=== PATIENT | male | born 1945 | race Asian ===

== ENCOUNTER 2017-12-03 09:00 | Emergency (ER) | payer OTHER, MEDICARE ==
[~2017-12-03] VITALS: Ht 165.1 cm; Wt 97.6 kg
[~2017-12-03 09:00] MED LIST: ACIDOPHILUS W/P1 CAP PO; ACIDOPHILUS-PE1 EAC2 PO; ANTIVERT 12.512.5 MG PO; ANTIVERT 25 MG25 M1 PO; ANTIVERT 25 MG25 MG PO; ANTIVERT 25MG #1 PAC PO; ATORVASTATIN CA40 MG PO; Aspirin PO; BENTYL10 M1 PO; BENTYL20 MG PO; CIPRO 500MG TA500 MG PO; CIPRO500 M1 PO; CLONAZEPAM0.5 M2 PO; CLOPIDOGREL75 M1 PO; DRAMAMINE LESS25 MG PO; ECOTRIN325 M1 PO; FINASTERIDE5 M1 PO; FLOMAX(MONOGRA0.4 MG PO; FLOMAX0.4 M1 PO; GOLYTELY1 PDR PO; GOOD SENSE ASP325 MG PO; HEPARIN 2525000 UNIT IV; IBUPROFEN800 M1 PO; LEVSIN0.125 MG PO; LIPITOR40 M1 PO; LOPRESSOR 25MG25 MG PO; LOSARTAN POTASS1 TA2 PO; MECLIZINE HCL25 M1 PO; MECLIZINE25 M1 PO; METOPROLOL TART25 M1 PO; OXACILLIN2 GM/50 M1 IV; PAXIL10 M1 PO; PERCOCET 325 MG1 TA2 PO; PERCOCET 5-3251 EACH PO; PLAVIX 75MG TAB75 MG PO; PRINIVIL 5MG5 MG PO; PRINIVIL5 M1 PO; PROTONIX 20MG T20 MG PO; REGLAN10 MG PO; RISPERDAL0.25 M1 PO; RISPERDAL0.25 MG PO; RISPERIDONE0.5 MG PO; TRAMADOL HCL50 M1 PO; VOLTAREN100 GM TOP
[2017-12-03 09:07] VITALS: BP 151/72
--- NOTE | 2017-12-03 09:39 | ED GI/GU/ABDOMINAL COMPLAINT ---
History of Present Illness General Chief Complaint: Abdominal Pain/Flank Pain Stated Complaint: ABD PAIN Source: patient, old records Exam Limitations: poor historian Vital Signs & Intake/Output Vital Signs & Intake/Output Vital Signs Date Time Temp Pulse Resp B/P B/P Pulse O2 O2 Flow FiO2 Mean Ox Delivery Rate 12/03 0922 99 Room Air 12/03 906 98.2 88 20 151/72 97 Room Air Allergies Coded Allergies: NO KNOWN ALLERGIES (02/10/16) Reconcile Medications Atorvastatin Calcium (Lipitor) 40 MG TABLET 1 TAB PO 1700 CHOLESTEROL ( Reported) Clonazepam 0.5 MG TABLET 0.5 TAB PO BID UNKNOWN (Reported) Finasteride 5 MG TABLET 5 MG PO DAILY prostate Ibuprofen 800 MG TABLET 1 TAB PO TID PAIN Lisinopril (Prinivil) 5 MG TABLET 1 TAB PO DAILY BP (Reported) Metoprolol Tartrate 25 MG TABLET 1 TAB PO BID HEART (Reported) Oxacillin Sodium/Dextrose,Iso (Oxacillin 2 Gm/ 50 Ml Inj) 2 GM/50 ML FROZ.PIGGY 2,000 GM IV Q4 BLOOD INFECTION Oxycodone HCl/Acetaminophen (Percocet 5-325 MG Tablet) 1 EACH TABLET 1 TAB PO Q4-6H PRN PAIN (Reported) Paroxetine HCl (Paxil) 10 MG TABLET 1 TAB PO DAILY MENTAL HEALTH (Reported) Risperidone (Risperdal) 0.25 MG TABLET 1 TAB PO QAM UNKNOWN (Reported) Risperidone (Risperdal) 0.25 MG TABLET 2 TAB PO QPM MENTAL HEALTH (Reported) Tamsulosin HCl (Flomax) 0.4 MG CAP.ER.24H 2 CAP PO QPM URINARY RETENTION ( Reported) Tramadol HCl 50 MG TABLET 1 TAB PO TID PAIN Triage Note: 72 YEAR OLD MALE COMPLAINS OF INTERMITTANT DIFFUSE ABD PAIN FOR YEARS, DENIES BLOOD IN URINE, DENIES N/V/D. LBM THIS AM 0600. Triage Nurses Notes Reviewed? yes Onset: unknown Duration: gone now, intermittent, years Timing: recent history Quality/Severity: gassy Location: generalized abdomen, occasionally right sided Radiation: no radiation HPI: Patient presents for evaluation of an intermittent gassy abdominal pain that has been present for years. He states he is not having pain currently. He is unable to state why he has decided to come to the emergency department today for evaluation. Unfortunately he is somewhat of a poor historian, repeatedly stating that he wants to go home and did not be admitted. In addition to the generalized abdominal pain and he occasionally gets right-sided abdominal pain as well. He denies any associated vomiting diarrhea dysuria. In addition he states he noticed a droop of the right lip that began 2-3 days ago with no associated aphasia or weakness of the extremities. Past History Travel History Traveled to [place] past 21 day No Medical History Any Pertinent Medical History? see below for history Neurological: NONE EENT: NONE Cardiovascular: hypertension, NSTEMI, CAD S/P CARDIAC STENTS ATHEROSCLEROTIC HEART DISEASE Respiratory: NONE Gastrointestinal: GERD, hiatal hernia, colonic polyps status post polypectomy. internal and external hemorrhoids. SBO INTRAPERITONEAL BLEED Hepatic: NONE Renal: benign prost hyperplasia, hematuria Musculoskeletal: NONE Psychiatric: MOOD/AFFECTIVE D/O Endocrine: NONE Blood Disorders: BACTEREMIA MSSA STAPH AUREUS Cancer(s): NONE MIG TIG WELDER/Reproductive: NONE History of MRSA: No History of VRE: No History of CDIFF: No Tetanus Vaccine: 03/22/12 Surgical History Surgical History: cystoscopy, hernia repair-incisional (bilateral), hernia repair-inguinal Psychosocial History Who do you live with Spouse Services at Home None What is your primary language [place] Tobacco Use: Never used ETOH Use: denies use Illicit Drug Use: denies illicit drug use Family History Family History, If Any: Relation not specified for: *No pertinent family history Hx Contributory? No Review of Systems Review of Systems Constitutional: Reports: no symptoms. EENTM: Reports: no symptoms. Respiratory: Reports: no symptoms. Cardiovascular: Reports: no symptoms. GI: Reports: see HPI. Genitourinary: Reports: no symptoms. Musculoskeletal: Reports: no symptoms. Skin: Reports: no symptoms. Neurological/Psychological: Reports: see HPI. Hematologic/Endocrine: Reports: no symptoms. Immunologic/Allergic: Reports: no symptoms. All Other Systems: Reviewed and Negative Physical Exam Physical Exam Gastrointestinal: see below Comments: Gen.: Well-nourished, well-developed, no acute respiratory distress. Head: Normocephalic, atraumatic. Eyes: Normal inspection bilaterally Ears: Normal inspection bilaterally Nose: Normal inspection Throat/mouth : Moist mucosa Neck: Supple, full range of motion, no goiter Heart: Regular rate and rhythm, no murmurs rubs or gallops Lungs: Clear to auscultation bilaterally with normal air entry Chest: Nontender Back: Normal range of motion Abdomen: Soft, nontender, nondistended, normal bowel sounds Extremities: Normal range of motion grossly, equal radial pulses, no cyanosis clubbing or edema Neurologic: Cranial nerves 2 through 12 intact, speech is dysarthric (patient is edentulous) with no apparent aphasia Skin: warm and dry Psychiatric: Calm, cooperative, no apparent delusions or hallucinations Core Measures ACS in differential dx? No Sepsis Present: No Sepsis Focused Exam Completed? No Progress Differential Diagnosis: biliary colic, bowel obstruction, diverticulitis, gastritis, ischemic bowel, PUD/GERD Plan of Care: pt left ED prior to workup. Initial ED EKG: none Comments: i was notified by RN that pt left ED prior to workup. this occurred after pt left and i was unable to speak with pt regarding the reason for his departure. Departure Departure Disposition: LEFT AGAINST MEDICAL ADVICE Condition: Stable Clinical Impression Primary Impression: Abdominal pain Qualifiers: Abdominal location: generalized Qualified Code: R10.84 - Generalized abdominal pain Referrals: Juliet Meyer MD (PCP/Family) Departure Forms: Customer Survey General Discharge Information
[2017-12-03 10:17] LABS: ABSOLUTE BASOPHIL COUNT 0 /CUMM (0.0-0.2); ABSOLUTE EOSINOPHIL COUNT 0.1 /CUMM (0.0-0.7); ABSOLUTE GRANULOCYTE CT 3.5 /CUMM (1.4-6.5); ABSOLUTE LYMPH COUNT 1.7 /CUMM (1.2-3.4); ABSOLUTE MONOCYTE COUNT 0.5 /CUMM (0.10-0.60); BASOPHIL % 0.3 % (0.0-2.0); GRANULOCYTE % 59.4 % (42.2-75.2); MEAN CORPUSCULAR HGB 27.6 PG (27.0-31.0); MEAN CORPUSCULAR HGB CONC 34.1 G/DL (33.0-37.0); MEAN CORPUSCULAR VOLUME 80.8 FL (80.0-94.0); PLATELET COUNT 158 /CUMM (130-400); RBC DISTRIBUTION WIDTH 14.5 % (11.5-14.5); RED BLOOD CELL CT 4.46 /CUMM (4.70-6.10); WHITE BLOOD CELL COUNT 5.9 /CUMM (4.8-10.8)
--- NOTE | 2017-12-03 11:05 | CT SCAN REPORT ---
EXAMINATION: CT HEAD WITHOUT CONTRAST CLINICAL INFORMATION: Right lip droop. COMPARISON: Head CT 02/21/2016. TECHNIQUE: Contiguous axial imaging was performed from the skull base to vertex without intravenous administration of contrast. DLP: 619 mGy-cm. FINDINGS: There is no intracranial hemorrhage, large infarction, or mass lesion. There is no extra-axial collection. There is redemonstration of focal hypoattenuation in the right deep frontal white matter compatible with the sequela of prior subcortical infarction. There is mild scattered hypoattenuation in the bilateral cerebral white matter, which is nonspecific but likely reflects small vessel disease. There is mild diffuse brain parenchymal volume loss with prominence of the ventricles and sulci. There is no evidence of hydrocephalus. The paranasal sinuses are clear. The mastoids and middle ear cavities are clear. There is mild diffuse edema within the subcutaneous tissues of the scalp which is a nonspecific finding but may reflect mild amount of volume overload. IMPRESSION: 1. No acute intracranial abnormality identified. 2. 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 3. Background of mild small vessel ischemic changes and mild brain parenchymal volume loss. 4. Mild diffuse edema within the scalp.
== END 2017-12-03 10:33 | disposition left against medical advice (07) ==
LOC: ERH 09:00
PROVIDERS: Emergency Medicine
DX: R10.84 Generalized abdominal pain (principal)

== ENCOUNTER → 2018-04-19 | Day surgery (SDC) | payer OTHER, MEDICARE ==
[~2018-04-19] VITALS: Ht 167.6 cm; Wt 99.8 kg
--- NOTE | 2018-04-19 09:00 | Operative Report ---
Operative/Inv Procedure Report Surgery Date: 04/19/18 Name of Procedure: Cataract extraction with intraocular lens implantation right eye Pre-Operative Diagnosis: Age-related cataract right eye Post-Operative Diagnosis: Same Estimated Blood Loss: none Surgeon/Logging Assistant: Cr FREY,Gary Toledo Anesthesia: local monitored anesthesi Complications: None Operative/Procedure Note Note: Preoperatively the patient was noted to have 20/400 vision in the right eye. The risks, benefits, and alternatives to surgery were discussed at length with the patient. Informed consent was obtained. The patient was brought to the operating room where the right eye was prepped and draped in the normal sterile fashion. A speculum was placed on the right eye with good exposure. A stab incision was made using a paracentesis blade. Intracameral lidocaine was placed. Viscoelastic was used to form the anterior chamber. A clear corneal incision was made using keratome blade. A continuous curvilinear capsulorrhexis was made using a cystotome needle followed by Utrata forceps. There was no extension of the rhexis. Hydrodissection was performed using balanced salt solution. The cataract was removed using a stop and chop technique. Residual cortex was removed using coaxial irrigation and aspiration. The capsule was polished using irrigation and aspiration and the posterior capsule was cleaned using a balanced salt solution jet. There was no residual lens material inside the eye. The capsular bag was reformed using viscoelastic. An intraocular lens PCBOO of power 20.5 was verified and confirmed. It was loaded into an injector and injected into the eye. The lens was placed entirely within the capsular bag. Viscoelastic was evacuated using irrigation and aspiration. The wounds were stromally hydrated and the eye filled to physiologic pressure using balanced salt solution. Intracameral cefuroxime was placed. Speculum was removed and a shield was placed on the eye. The patient was brought to the recovery area without incident. Instructions were given to follow-up the next day for routine postoperative care.
== END ==
LOC: STS 01:03
DX: H25.9 Unspecified age-related cataract (principal); I10 Essential (primary) hypertension; I25.10 Atherosclerotic heart disease of native coronary artery without angina pectoris; N40.0 Benign prostatic hyperplasia without lower urinary tract symptoms
CPT/HCPCS: J2250; V2632